=== PATIENT | female | born 1980 | race Caucasian/White ===

== ENCOUNTER 2020-07-25 10:08 | Outpatient (NON) | payer BC, SELFPAY ==
[2020-07-25 22:09] LABS: SARS-CoV-2 RNA PCR Negative
== END 2020-07-25 10:09 ==
LOC: ANHCOVIDDT 10:09
PROVIDERS: PCP Family Medicine; Visit Provider Nurse Practitioner Family
DX: R43.2 Parageusia (principal); Z20.828 Contact with and (suspected) exposure to other viral communicable diseases
CPT/HCPCS: 87635; C9803; U0003

== ENCOUNTER → 2021-07-16 13:06 | Outpatient (CLI) | payer BC, SELFPAY ==
--- NOTE | ~2021-07-16 | MM_ITS ---
EXAMINATION: MM screening [facility] w [facility] HISTORY: Screening mammogram TECHNIQUE: Craniocaudal and mediolateral oblique 3-D tomosynthesis images were obtained and synthetic 2-D images were generated. CAD analysis was submitted and interpreted. COMPARISON: 10/02/2017 BREAST PARENCHYMAL COMPOSITION: There are scattered areas of fibroglandular density. FINDINGS: There is no evidence of suspicious mass, calcification, or architectural distortion to sugg est malignancy in either breast. There has been no suspicious interval change. IMPRESSION: 1. No mammographic evidence of malignancy. 2. Recommend routine screening mammography in one year. BI-RADS Category 1: Negative Reviewed, dictated and finalized at location A. CHECK ATTENDANT
== END ==
PROVIDERS: PCP Family Medicine; Visit Provider Nurse Practitioner Family
DX: Z12.31 Encounter for screening mammogram for malignant neoplasm of breast (principal)
CPT/HCPCS: 77063; 77067

== ENCOUNTER 2021-08-06 18:12 | Emergency (ER) | payer BC, SELFPAY ==
[2021-08-06 18:18] VITALS: BP 135/79; PULSE 72; RESP 12; TEMP 36.7; O2SAT 100
--- NOTE | 2021-08-06 18:54 | ED.WOUNDLAC ---
HPI - Wound/Laceration General Chief Complaint: Wound/Laceration Stated Complaint: Laceration on finger Source: patient Mode of arrival: ambulatory Limitations: no limitations History of Present Illness HPI narrative: 40-year-old female presented for complaint of laceration to right third digit, onset today. She states she was able to stop the bleeding with pressure. She is up-to-date on her tetanus vaccine. Denies loss of sensation or range of motion. Related Data Home Medications Medication Instructions Recorded Confirmed gabapentin 100 mg capsule 100 mg PO DAILY cap 05/06/21 Allergies Allergy/AdvReac Type Severity Reaction Status Date / Time No Known Allergies Allergy Unknown Unverified 05/06/21 16:12 Review of Systems Review of Systems: CONSTITUTIONAL: Denies body aches, fever, chills, or sweats. EYES: Denies visual changes, redness, or discharge. ENT: Denies rhinorrhea, congestion, sore throat, or otalgia. CARDIOVASCULAR: Denies chest pain, palpitations, or edema. RESPIRATORY: Denies cough or dyspnea. GASTROINTESTINAL: Denies abdominal pain, nausea, vomiting, or diarrhea. GENITOURINARY: Denies dysuria or hematuria. SKIN: endorses laceration MUSCULOSKELETAL: Denies back pain, joint pain, or myalgia. NEUROLOGIC: Denies headache, numbness, tingling, or weakness. PSYCH: Denies depression or anxiety. ON LICENSE OF [facility] Past Medical History Medical History Bilateral carpal tunnel syndrome Family History Family History Mother Patient's mother is in good health, Onset Age: 51 Sibling Patient's sister is in good health, Onset Age: 22 Patient's brother is in good health, Onset Age: 30 Father Family history of malignant melanoma Social History Social History Smoking status: Never smoker Alcohol intake: current Alcohol use details: occasional Substance use: never Substance use type: does not use Additional occupation/education comments: self employed Gender identity (if verbalized by the patient): Female Comments At time of signature, I have reviewed and agree with nursing past medical, surgical, social and family history unless otherwise noted. Please see nursing chart for further information. There is no relevant family history pertinent to the presenting complaint Exam Narrative: GENERAL: Well-appearing, well-nourished, and in no acute distress. HEAD: Normocephalic, atraumatic. EYES: PERRLA, conjunctivae clear, and EOMI. ENT: Mucous membranes moist. Oropharynx without edema, erythema or lesions. NECK: Supple. No lymphadenopathy CHEST: Clear to auscultation. No respiratory distress. HEART: Regular rate and rhythm. SKIN: 1cm linear lac to right 3rd digit PIP; bleeding controlled, no tendon involvement, sensation intact NEURO: Alert and oriented x3. PSYCH: Normal mood and affect Course Course Emergency Course: Patient is aware of diagnosis, understands and agrees to treatment plan. Anticipatory guidance given. Patient agrees to follow-up as directed and is aware of reasons to seek care at the emergency department. Portions of this record may have been created with voice recognition software Level of Care: Express Care Visit Vital Signs Vital signs: Vital Signs Temperature 98.0 F 08/06/21 18:18 Pulse Rate 72 08/06/21 18:18 Respiratory Rate 12 08/06/21 18:18 Blood Pressure 135/79 08/06/21 18:18 Pulse Oximetry 100 08/06/21 18:18 Temperature 98.0 F 08/06/21 18:18 Pulse Rate 72 08/06/21 18:18 Respiratory Rate 12 08/06/21 18:18 Blood Pressure 135/79 08/06/21 18:18 Pulse Oximetry 100 08/06/21 18:18 Reviewed Procedures Laceration Laceration 1: Date: 08/06/21 Time: 19:12 Site: hand Side (If applicable): right Size (cm): 1 Description:
== END 2021-08-06 19:31 | disposition home or self-care (01) ==
PROVIDERS: Emergency Provider Nurse Practitioner Family; PCP Family Medicine
DX: S61.212A Laceration without foreign body of right middle finger without damage to nail, initial encounter (principal); X58.XXXA Exposure to other specified factors, initial encounter
CPT/HCPCS: 12001; 99212; G0463

== ENCOUNTER 2021-08-27 17:26 | Emergency (ER) | payer BC, SELFPAY ==
--- NOTE | ~2021-08-27 | XR_ITS ---
EXAMINATION: XR finger 3rd RT min 2V EXAM DATE: 08/27/2021 17:53 INDICATION: Deformity Rt finger DIP,unable to bend joint;lac 08/06/21 PIP. Laceration PIP Rt 3rd fin radha 08/06/21, unable to bend DIP joint onset x 2 days TECHNIQUE: Right 3rd finger frontal, lateral and oblique projections obtained and reviewed. Correlat ion is made to Right hand x-ray 06/21/2019 FINDINGS: There are no acute right 3rd finger fractures or dislocations identified. There is no subc utaneous gas. There is soft tissue swelling over the proximal interphalangeal joint. There are no r adiopaque foreign bodies. IMPRESSION: 1. Right 3rd finger exam without acute osseous findings. 2. Soft tissue swelling. Reviewed, dictated and finalized at location G. [facility]
--- NOTE | 2021-08-27 17:29 | ED.UPPEXIN ---
HPI - Extremity Injury (Upper) General Chief Complaint: Extremity Problem,Nontraumatic Stated Complaint: Rt hand pain Time Seen by Provider: 08/27/21 17:38 Source: patient and RN notes reviewed Mode of arrival: ambulatory Limitations: no limitations History of Present Illness HPI narrative: 40-year-old female presents concern for deformity to the third digit of the right hand. She reports she was seen here 3 weeks ago for a laceration that she sustained to the dorsal aspect of the third digit above the MIP joint. Reports the laceration healed, however swelling at that right remains and the tip of her finger is now bent outward and she is unable to voluntarily move it. MD complaint: injury to: right and finger Related Data Home Medications Medication Instructions Recorded Confirmed gabapentin 100 mg capsule 100 mg PO DAILY cap 05/06/21 Allergies Allergy/AdvReac Type Severity Reaction Status Date / Time No Known Allergies Allergy Unknown Unverified 05/06/21 16:12 Review of Systems Review of Systems: CONSTITUTIONAL: Denies malaise, chills, sweats, or fever. CARDIOVASCULAR: Denies chest pain, palpitations, or edema. RESPIRATORY: Denies cough or dyspnea. SKIN: Denies rash or itching, bruising, redness. Reports swelling at the MIP joint of the third digit of the right hand MUSCULOSKELETAL: Reports deformity and limited range of motion to the distal third digit of the right hand NEUROLOGIC: Denies numbness, weakness All systems reviewed & are unremarkable except as noted in HPI and below PMFSH Past Medical History Medical History Bilateral carpal tunnel syndrome Family History Family History Mother Patient's mother is in good health, Onset Age: 51 Sibling Patient's sister is in good health, Onset Age: 22 Patient's brother is in good health, Onset Age: 30 Father Family history of malignant melanoma Social History Social History Smoking status: Never smoker Alcohol intake: current Alcohol use details: occasional Substance use: never Substance use type: does not use Additional occupation/education comments: self employed Gender identity (if verbalized by the patient): Female Comments At time of signature, agree with nursing past medical, surgical, social and family history. There is no relevant family history pertinent to the presenting complaint Exam Narrative: GENERAL: Well-appearing, well-nourished, and in no acute distress. HEAD: Normocephalic EYES: PERRLA, conjunctivae clear NECK: Supple. CHEST: Speaks in full sentences. No respiratory distress. HEART: Regular rate and rhythm. Normal and equal peripheral pulses. EXTREMITIES: Third digit of right hand has grossly normal strength and sensation. DIP joint has no voluntary movement, otherwise range of motion normal. No clubbing, cyanosis noted. Mild edema and tenderness to the MIP joint. Skin intact. Normal sensation of each side of finger. No scissoring. Good capillary refill and radial pulse. Distal capillary refill less than 3 seconds. SKIN: Warn, dry, intact, pink. No rash NEURO: Alert and oriented x3. PSYCH: Normal mood and affect Course Course Emergency Course: Patient is aware of diagnosis, understands and agrees to treatment plan. Anticipatory guidance given. Patient agrees to follow-up as directed and is aware of reasons to seek care at the emergency department. Portions of this record may have been created with voice recognition software Level of Care: Express Care Visit Vital Signs Vital signs: Reviewed. MDM - Extremity Injury (Upper) MDM Narrative Medical decision making narrative: Patients injury and pain is consistent with musculoskeletal etiology. No signs of neurological or vascular compromise on exam. Compartments and tissues are soft without signs
[2021-08-27 17:32] VITALS: BP 122/77; PULSE 69; RESP 16; TEMP 36.4; O2SAT 99
== END 2021-08-27 18:09 | disposition home or self-care (01) ==
PROVIDERS: Emergency Provider Nurse Practitioner; PCP Family Medicine
DX: S66.302A Unspecified injury of extensor muscle, fascia and tendon of right middle finger at wrist and hand level, initial encounter (principal); W45.8XXA Other foreign body or object entering through skin, initial encounter; M79.7 Fibromyalgia
CPT/HCPCS: 29130; 73140; 99213; G0463